=== PATIENT | female | born 1940 | race Caucasian/White ===

== ENCOUNTER → 2017-07-04 | Outpatient (CLI) | payer OTHER, MEDICARE | END | disposition home or self-care (01) | DX: M16.12 Unilateral primary osteoarthritis, left hip (principal); R26.2 Difficulty in walking, not elsewhere classified; M25.552 Pain in left hip; M25.652 Stiffness of left hip, not elsewhere classified; Z74.1 Need for assistance with personal care | CPT/HCPCS: 97161 GP; 97165 GO; 97530 GP; 97535 GO; G8978 GP; G8979 GP; G8980 GP; G8987 GO; G8988 GO; G8989 GO ==

== ENCOUNTER 2017-07-30 22:07 | Inpatient (IN) | payer OTHER, MEDICARE ==
[~2017-07-30] VITALS: Ht 157.5 cm; Wt 111.7 kg
[~2017-07-30 22:07] MED LIST: AMLODIPINE BESYL5 MG PO; BENAZEPRIL HCL10 MG PO; CINNAMON500 MG PO; LEVOTHYROXINE75 MCG PO; LO-DOSE ASPIRIN81 M2 PO; METFORMIN HCL500 MG PO; NEURONTIN300 MG PO; OMEGA-31000 M1 PO; PRAVACHOL40 MG PO; SERTRALINE HCL50 MG PO; XANAX0.25 MG PO
[2017-07-31 06:01] VITALS: BP 152/67
[2017-07-31 10:46] LABS: HEMATOCRIT 44.2 % (36.0-46.0); HEMOGLOBIN 14.3 G/DL (11.9-15.5); MCH 29.8 PG (29.0-34.0); MCHC 32.4 G/DL (30.0-36.0); MCV 92.1 FL (83-99); PLATELET COUNT 224 K/uL (156-360); RBC DIS.WIDTH-CV 13.4 % (11.8-14.6); RBC DIS.WIDTH-SD 45.8 % (39-53); WHITE BLOOD COUNT 9.9 K/uL (4.1-10.2)
[2017-07-31 12:04] VITALS: BP 138/65
[2017-07-31 15:55] VITALS: BP 118/55
[2017-07-31 19:47] VITALS: BP 128/59
[2017-08-01] VITALS: BP 129/58
[2017-08-01 04:12] VITALS: BP 154/67
[2017-08-01 06:21] LABS: HEMATOCRIT 37.8 % (36.0-46.0); HEMOGLOBIN 12.4 G/DL (11.9-15.5); MCV 91.3 FL (83-99)
[2017-08-01 07:19] LABS: CHLORIDE 105 MEQ/L (99-109); CREATININE 0.6 MG/DL (0.6-1.3); GFR ESTIMATE (CALCULATED) > 59 mL/min/; GLUCOSE 161 mg/dL (70-99); SODIUM 140 MEQ/L (136-147); UREA NITROGEN (BUN) 9 mg/dL (9-23)
[2017-08-01 07:24] LABS: POTASSIUM 3.4 MEQ/L (3.7-5.4)
[2017-08-01 08:00] VITALS: BP 125/66
[2017-08-01 12:00] VITALS: BP 110/55
[2017-08-01 15:43] VITALS: BP 94/51
[2017-08-01 19:34] VITALS: BP 119/59
[2017-08-02] VITALS: BP 112/58
[2017-08-02 04:00] VITALS: BP 117/58
[2017-08-02 06:13] LABS: HEMATOCRIT 37.4 % (36.0-46.0); MCV 93.3 FL (83-99)
[2017-08-02 07:03] LABS: CHLORIDE 105 MEQ/L (99-109); GLUCOSE 137 mg/dL (70-99); POTASSIUM 3.9 MEQ/L (3.7-5.4); SODIUM 141 MEQ/L (136-147); UREA NITROGEN (BUN) 19 mg/dL (9-23)
[2017-08-02 07:05] LABS: CREATININE 1.1 MG/DL (0.6-1.3); GFR ESTIMATE (CALCULATED) 51 mL/min/
[2017-08-02 08:10] VITALS: BP 143/65
[2017-08-02 12:06] VITALS: BP 105/22
[2017-08-02 16:00] VITALS: BP 127/60
[2017-08-02 20:00] VITALS: BP 163/64
[2017-08-03 00:20] VITALS: BP 126/62
[2017-08-03 04:10] VITALS: BP 137/72
[2017-08-03 07:36] VITALS: BP 141/64
[2017-08-03] MEDS ORDERED: LOVENOX40 MG/0.4 SC (08:27)
[2017-08-03] MEDS ORDERED: DOCUSATE SODIU100 MG PO (08:27)
[2017-08-03] MEDS ORDERED: ENDOCET 5-3251 EACH PO (08:27)
[2017-08-03 12:27] VITALS: BP 125/58
== END 2017-08-03 13:20 | DRG 470 ==
LOC: ENRESERV 22:07 → 2SOUTH 07-31 05:07 → 3WEST 07-31 05:25 → 2SOUTH 07-31 05:25 → 3WEST 07-31 11:04 → 2SOUTH 07-31 12:36 → 3WEST 08-03 13:20
PROVIDERS: Orthopaedic Surgery; Physician Assistant
PROC: 0SRB02A Replacement of Left Hip Joint with Metal on Polyethylene Synthetic Substitute, Uncemented, Open Approach (ICD-10-PCS; principal; 2017-07-31)
DX: M16.12 Unilateral primary osteoarthritis, left hip (principal); E03.9 Hypothyroidism, unspecified; E78.00 Pure hypercholesterolemia, unspecified; I10 Essential (primary) hypertension; F32.9 Major depressive disorder, single episode, unspecified; F41.9 Anxiety disorder, unspecified; E11.9 Type 2 diabetes mellitus without complications; Z90.49 Acquired absence of other specified parts of digestive tract
CPT/HCPCS: 71045; 73501; 80048; 82948; 85014; 85018; 85027; J0131; J0330; J0690; J1170; J1650; J2405; J7050